=== PATIENT | female | born 1945 | race African-American/Black ===

== ENCOUNTER → 2016-09-04 | Outpatient (CLI) | payer MEDICARE, MEDICAID | END | disposition home or self-care (01) | LOC: MRI 09:47 | PROVIDERS: ATTEND Neurological Surgery | DX: M54.2 Cervicalgia (principal) | CPT/HCPCS: 72141; 72146; 97166; 97530; 97535 ==

== ENCOUNTER → 2016-09-16 | Outpatient (CLI) | payer MEDICARE, MEDICAID ==
[~2016-09-16] MED LIST: GADOBENATE DIMEGLUMINE 529 MG/ML 10ML IV ONE
== END | disposition home or self-care (01) ==
LOC: MRI 09:57
PROVIDERS: ATTEND Neurological Surgery
DX: M54.6 Pain in thoracic spine (principal)
CPT/HCPCS: 72147; A9577

== ENCOUNTER 2016-10-05 22:00 | Inpatient (IN) | payer MEDICARE, MEDICAID ==
[~2016-10-05] VITALS: Ht 152.4 cm; Wt 126.1 kg
[2016-10-05 22:00] VITALS: BP 180/86
[~2016-10-05 22:00] MED LIST changes: +AMLO10TA80 PO; +CARB1TAB2 PO; +ESCI20TA PO; +GABA-529 PO; -GADOBENATE DIMEGLUMINE 529 MG/ML 10ML IV ONE; +HYDR12.54 PO; +LEVO100T9 PO; +LISI-604 PO; +LUBI24CA5 PO; +OMEP20CA10 PO; +SIMV10TA6 PO
[2016-10-06] MEDS ORDERED: DIPHENHYDRAMINE 50MG/ML VIAL IV PRN (00:15)
[2016-10-06] MEDS ORDERED: ONDANSETRON HCL 4MG/2ML VIAL IV PRN (00:15)
[2016-10-06] MEDS ORDERED: IPRATROPIUM/ALBUTEROL 0.5-3(2.5)MG/3ML NEB HHN PRN (00:15)
[2016-10-06 02:26] VITALS: BP 109/42
[2016-10-06] MEDS: OMEPRAZOLE 20MG CAPSULE EXTENDED RELEASE PO SCH (06:16)
[2016-10-06] MEDS: LEVOTHYROXINE SODIUM 100MCG TABLET PO SCH (06:16)
[2016-10-06] MEDS: ACETAMINOPHEN 325MG TABLET PO PRN ×2 (06:17→14:20)
[2016-10-06 07:15] LABS: BASOPHILS % 0.4 % (0.0-2.0); EOSINOPHILS % 1.5 % (0.0-5.0); HEMOGLOBIN. 12.1 g/dL (12.0-16.0); LYMPHOCYTES % 24.1 % (20.0-50.0); MEAN CORPUSCULAR HEMOGLOBIN 30.1 pg (28.0-32.0); MEAN CORPUSCULAR VOLUME 89.7 fL (81.0-99.0); MEAN PLATELET VOLUME 7.1 fl (7.4-10.4); MONOCYTES % 11.1 % (2.0-8.0); NEUTROPHILS % 62.9 % (40.0-76.0); PLATELET 165 x1000/uL (130-400); RED BLOOD CELL COUNT 4.01 mill/uL (4.2-5.4); RED CELL DISTRIBUTION WIDTH 13.5 % (11.6-14.6)
[2016-10-06 07:34] LABS: CARBON DIOXIDE 32 mEq/L (21-32); CHLORIDE 96 mEq/L (98-107)
[2016-10-06 08:00] VITALS: BP 100/61
[2016-10-06] MEDS: GABAPENTIN 100MG CAPSULE PO SCH ×2 (08:24→17:00)
[2016-10-06] MEDS: CITALOPRAM HYDROBROMIDE 20MG TABLET PO SCH (08:24)
[2016-10-06] MEDS: HYDROCHLOROTHIAZIDE 12.5MG CAPSULE PO SCH (08:25)
[2016-10-06] MEDS: CARBIDOPA/LEVODOPA 25/100MG TABLET PO SCH ×2 (08:25→21:36)
[2016-10-06] MEDS: ENOXAPARIN 40MG/0.4ML SYR SUBCUT SCH ×2 (08:26→21:36)
[2016-10-06] MEDS: LISINOPRIL 20MG TABLET PO SCH (08:26)
[2016-10-06] MEDS: AMLODIPINE 10MG TABLET PO SCH (08:26)
[2016-10-06] MEDS: AMITIZA (LUBIPROSTONE) 24MCG PO SCH ×2 (08:27→17:00)
[2016-10-06 20:00] VITALS: BP 105/61
[2016-10-06] MEDS: ATORVASTATIN CALCIUM 10MG TABLET PO SCH (21:37)
[2016-10-07] MEDS: OMEPRAZOLE 20MG CAPSULE EXTENDED RELEASE PO SCH (06:17)
[2016-10-07] MEDS: LEVOTHYROXINE SODIUM 100MCG TABLET PO SCH (06:17)
[2016-10-07] MEDS: ENOXAPARIN 40MG/0.4ML SYR SUBCUT SCH ×2 (07:38→21:37)
[2016-10-07 08:00] VITALS: BP 105/60
[2016-10-07] MEDS: LISINOPRIL 20MG TABLET PO SCH (09:00)
[2016-10-07] MEDS: AMLODIPINE 10MG TABLET PO SCH (09:00)
[2016-10-07] MEDS: HYDROCHLOROTHIAZIDE 12.5MG CAPSULE PO SCH (09:00)
[2016-10-07] MEDS: GABAPENTIN 100MG CAPSULE PO SCH ×2 (09:16→17:15)
[2016-10-07] MEDS: CITALOPRAM HYDROBROMIDE 20MG TABLET PO SCH (09:16)
[2016-10-07] MEDS: CARBIDOPA/LEVODOPA 25/100MG TABLET PO SCH ×2 (09:16→21:34)
[2016-10-07] MEDS: AMITIZA (LUBIPROSTONE) 24MCG PO SCH ×2 (09:17→17:16)
[2016-10-07 20:00] VITALS: BP 113/62
[2016-10-07] MEDS: ATORVASTATIN CALCIUM 10MG TABLET PO SCH (21:34)
[2016-10-08] MEDS: OMEPRAZOLE 20MG CAPSULE EXTENDED RELEASE PO SCH (06:23)
[2016-10-08] MEDS: LEVOTHYROXINE SODIUM 100MCG TABLET PO SCH (06:23)
[2016-10-08] MEDS: ACETAMINOPHEN 325MG TABLET PO PRN ×2 (06:27→21:29)
[2016-10-08 08:30] VITALS: BP 110/66
[2016-10-08] MEDS: HYDROCHLOROTHIAZIDE 12.5MG CAPSULE PO SCH (09:00)
[2016-10-08] MEDS: ENOXAPARIN 40MG/0.4ML SYR SUBCUT SCH ×2 (09:00→21:27)
[2016-10-08] MEDS: AMLODIPINE 10MG TABLET PO SCH (09:00)
[2016-10-08] MEDS: LISINOPRIL 20MG TABLET PO SCH (09:00)
[2016-10-08] MEDS: CITALOPRAM HYDROBROMIDE 20MG TABLET PO SCH (09:15)
[2016-10-08] MEDS: CARBIDOPA/LEVODOPA 25/100MG TABLET PO SCH ×2 (09:15→21:26)
[2016-10-08] MEDS: GABAPENTIN 100MG CAPSULE PO SCH (09:16)
[2016-10-08] MEDS: AMITIZA (LUBIPROSTONE) 24MCG PO SCH ×2 (09:16→17:02)
[2016-10-08 20:00] VITALS: BP 124/77
[2016-10-08] MEDS: ATORVASTATIN CALCIUM 10MG TABLET PO SCH (21:26)
[2016-10-09 05:51] LABS: BASOPHILS % 0.6 % (0.0-2.0); EOSINOPHILS % 1.5 % (0.0-5.0); HEMATOCRIT. 34.4 % (36.0-48.0); HEMOGLOBIN. 11.4 g/dL (12.0-16.0); LYMPHOCYTES % 31.8 % (20.0-50.0); MEAN CORPUSCULAR HEMOGLOBIN 30.1 pg (28.0-32.0); MEAN CORPUSCULAR VOLUME 90.7 fL (81.0-99.0); MEAN PLATELET VOLUME 6.7 fl (7.4-10.4); MONOCYTES % 11.4 % (2.0-8.0); NEUTROPHILS % 54.7 % (40.0-76.0); PLATELET 180 x1000/uL (130-400); RED BLOOD CELL COUNT 3.79 mill/uL (4.2-5.4); RED CELL DISTRIBUTION WIDTH 13.8 % (11.6-14.6)
[2016-10-09 06:10] LABS: CARBON DIOXIDE 29 mEq/L (21-32); CHLORIDE 101 mEq/L (98-107)
[2016-10-09] MEDS: LEVOTHYROXINE SODIUM 100MCG TABLET PO SCH (06:19)
[2016-10-09 07:24] VITALS: BP 123/64
[2016-10-09] MEDS: AMITIZA (LUBIPROSTONE) 24MCG PO SCH ×2 (08:37→17:05)
[2016-10-09] MEDS: AMLODIPINE 10MG TABLET PO SCH (08:38)
[2016-10-09] MEDS: LISINOPRIL 20MG TABLET PO SCH (08:38)
[2016-10-09] MEDS: ENOXAPARIN 40MG/0.4ML SYR SUBCUT SCH ×2 (08:39→21:44)
[2016-10-09] MEDS: CITALOPRAM HYDROBROMIDE 20MG TABLET PO SCH (08:40)
[2016-10-09] MEDS: HYDROCHLOROTHIAZIDE 12.5MG CAPSULE PO SCH (08:40)
[2016-10-09] MEDS: CARBIDOPA/LEVODOPA 25/100MG TABLET PO SCH ×2 (08:40→21:43)
[2016-10-09] MEDS: FAMOTIDINE 20MG TABLET PO SCH (08:40)
[2016-10-09] MEDS: ACETAMINOPHEN 325MG TABLET PO PRN (11:52)
[2016-10-09 20:00] VITALS: BP 110/66
[2016-10-09] MEDS: ATORVASTATIN CALCIUM 10MG TABLET PO SCH (21:43)
[2016-10-10] MEDS: LEVOTHYROXINE SODIUM 100MCG TABLET PO SCH (06:01)
[2016-10-10 08:00] VITALS: BP 143/76
[2016-10-10] MEDS: AMITIZA (LUBIPROSTONE) 24MCG PO SCH ×2 (08:18→17:15)
[2016-10-10] MEDS: CITALOPRAM HYDROBROMIDE 20MG TABLET PO SCH (08:19)
[2016-10-10] MEDS: FAMOTIDINE 20MG TABLET PO SCH (08:20)
[2016-10-10] MEDS: HYDROCHLOROTHIAZIDE 12.5MG CAPSULE PO SCH (08:20)
[2016-10-10] MEDS: CARBIDOPA/LEVODOPA 25/100MG TABLET PO SCH ×2 (08:20→21:09)
[2016-10-10] MEDS: AMLODIPINE 10MG TABLET PO SCH (08:21)
[2016-10-10] MEDS: LISINOPRIL 20MG TABLET PO SCH (08:22)
[2016-10-10] MEDS: ENOXAPARIN 40MG/0.4ML SYR SUBCUT SCH ×2 (08:24→21:10)
[2016-10-10] MEDS ORDERED: POTASSIUM CHLORIDE 20MEQ TABLET SR PO NR (16:15)
[2016-10-10 20:00] VITALS: BP 104/54
[2016-10-10] MEDS: ATORVASTATIN CALCIUM 10MG TABLET PO SCH (21:09)
[2016-10-11] MEDS: LEVOTHYROXINE SODIUM 100MCG TABLET PO SCH (06:10)
[2016-10-11 07:43] LABS: CHLORIDE 102 mEq/L (98-107)
[2016-10-11 08:00] VITALS: BP 102/58
[2016-10-11 08:00] LABS: CARBON DIOXIDE 27 mEq/L (21-32)
[2016-10-11] MEDS: LISINOPRIL 20MG TABLET PO SCH (08:36)
[2016-10-11] MEDS: CITALOPRAM HYDROBROMIDE 20MG TABLET PO SCH (08:36)
[2016-10-11] MEDS: AMLODIPINE 10MG TABLET PO SCH (08:36)
[2016-10-11] MEDS: ENOXAPARIN 40MG/0.4ML SYR SUBCUT SCH ×2 (08:36→21:12)
[2016-10-11] MEDS: CARBIDOPA/LEVODOPA 25/100MG TABLET PO SCH ×2 (08:36→21:12)
[2016-10-11] MEDS: FAMOTIDINE 20MG TABLET PO SCH (08:36)
[2016-10-11] MEDS: AMITIZA (LUBIPROSTONE) 24MCG PO SCH ×2 (08:37→17:20)
[2016-10-11] MEDS: HYDROCHLOROTHIAZIDE 12.5MG CAPSULE PO SCH (08:38)
[2016-10-11 20:00] VITALS: BP 112/66
[2016-10-11] MEDS: ATORVASTATIN CALCIUM 10MG TABLET PO SCH (21:12)
[2016-10-12] MEDS: LEVOTHYROXINE SODIUM 100MCG TABLET PO SCH (06:26)
[2016-10-12] MEDS: ACETAMINOPHEN 325MG TABLET PO PRN (06:26)
[2016-10-12 07:05] VITALS: BP 95/53
[2016-10-12] MEDS: ENOXAPARIN 40MG/0.4ML SYR SUBCUT SCH ×2 (09:00→21:00)
[2016-10-12] MEDS: LISINOPRIL 20MG TABLET PO SCH (09:00)
[2016-10-12] MEDS: HYDROCHLOROTHIAZIDE 12.5MG CAPSULE PO SCH (09:00)
[2016-10-12] MEDS: AMLODIPINE 10MG TABLET PO SCH (09:00)
[2016-10-12] MEDS: FAMOTIDINE 20MG TABLET PO SCH (09:32)
[2016-10-12] MEDS: CITALOPRAM HYDROBROMIDE 20MG TABLET PO SCH (09:32)
[2016-10-12] MEDS: CARBIDOPA/LEVODOPA 25/100MG TABLET PO SCH ×2 (09:32→21:14)
[2016-10-12] MEDS: AMITIZA (LUBIPROSTONE) 24MCG PO SCH ×2 (09:32→17:17)
[2016-10-12 19:00] VITALS: BP 113/65
[2016-10-12] MEDS: ATORVASTATIN CALCIUM 10MG TABLET PO SCH (21:14)
[2016-10-13] MEDS: LEVOTHYROXINE SODIUM 100MCG TABLET PO SCH (06:11)
[2016-10-13 08:00] VITALS: BP 145/86
[2016-10-13] MEDS: FAMOTIDINE 20MG TABLET PO SCH (08:19)
[2016-10-13] MEDS: CITALOPRAM HYDROBROMIDE 20MG TABLET PO SCH (08:20)
[2016-10-13] MEDS: CARBIDOPA/LEVODOPA 25/100MG TABLET PO SCH ×2 (08:20→21:23)
[2016-10-13] MEDS: HYDROCHLOROTHIAZIDE 12.5MG CAPSULE PO SCH (08:20)
[2016-10-13] MEDS: LISINOPRIL 20MG TABLET PO SCH (08:21)
[2016-10-13] MEDS: AMLODIPINE 10MG TABLET PO SCH (08:21)
[2016-10-13] MEDS: AMITIZA (LUBIPROSTONE) 24MCG PO SCH ×2 (08:21→16:35)
[2016-10-13] MEDS: ENOXAPARIN 40MG/0.4ML SYR SUBCUT SCH ×2 (08:22→21:00)
[2016-10-13 20:00] VITALS: BP 95/40
[2016-10-13] MEDS: ATORVASTATIN CALCIUM 10MG TABLET PO SCH (21:23)
[2016-10-14] MEDS: LEVOTHYROXINE SODIUM 100MCG TABLET PO SCH (06:20)
[2016-10-14 08:00] VITALS: BP 114/61
[2016-10-14] MEDS: AMLODIPINE 10MG TABLET PO SCH (09:00)
[2016-10-14] MEDS: ENOXAPARIN 40MG/0.4ML SYR SUBCUT SCH ×2 (09:00→22:15)
[2016-10-14] MEDS: LISINOPRIL 20MG TABLET PO SCH (09:00)
[2016-10-14] MEDS: CITALOPRAM HYDROBROMIDE 20MG TABLET PO SCH (09:41)
[2016-10-14] MEDS: FAMOTIDINE 20MG TABLET PO SCH (09:41)
[2016-10-14] MEDS: HYDROCHLOROTHIAZIDE 12.5MG CAPSULE PO SCH (09:42)
[2016-10-14] MEDS: AMITIZA (LUBIPROSTONE) 24MCG PO SCH ×2 (09:42→18:08)
[2016-10-14] MEDS: CARBIDOPA/LEVODOPA 25/100MG TABLET PO SCH ×2 (09:42→22:15)
[2016-10-14 20:00] VITALS: BP 123/47
[2016-10-14] MEDS: ATORVASTATIN CALCIUM 10MG TABLET PO SCH (22:14)
[2016-10-15] MEDS: LEVOTHYROXINE SODIUM 100MCG TABLET PO SCH (05:55)
[2016-10-15 08:00] VITALS: BP 138/81
[2016-10-15] MEDS: AMITIZA (LUBIPROSTONE) 24MCG PO SCH ×2 (09:25→17:09)
[2016-10-15] MEDS: CARBIDOPA/LEVODOPA 25/100MG TABLET PO SCH ×2 (09:25→21:11)
[2016-10-15] MEDS: FAMOTIDINE 20MG TABLET PO SCH (09:26)
[2016-10-15] MEDS: CITALOPRAM HYDROBROMIDE 20MG TABLET PO SCH (09:26)
[2016-10-15] MEDS: LISINOPRIL 20MG TABLET PO SCH (09:26)
[2016-10-15] MEDS: ENOXAPARIN 40MG/0.4ML SYR SUBCUT SCH ×2 (09:27→21:10)
[2016-10-15] MEDS: HYDROCHLOROTHIAZIDE 12.5MG CAPSULE PO SCH (09:27)
[2016-10-15] MEDS: AMLODIPINE 10MG TABLET PO SCH (09:27)
[2016-10-15 20:00] VITALS: BP 99/54
[2016-10-15] MEDS: ATORVASTATIN CALCIUM 10MG TABLET PO SCH (21:11)
[2016-10-16] MEDS: LEVOTHYROXINE SODIUM 100MCG TABLET PO SCH (06:40)
[2016-10-16] MEDS: ENOXAPARIN 40MG/0.4ML SYR SUBCUT SCH (08:07)
[2016-10-16] MEDS: CARBIDOPA/LEVODOPA 25/100MG TABLET PO SCH (08:08)
[2016-10-16] MEDS: FAMOTIDINE 20MG TABLET PO SCH (08:08)
[2016-10-16] MEDS: AMITIZA (LUBIPROSTONE) 24MCG PO SCH (08:09)
[2016-10-16] MEDS: LISINOPRIL 20MG TABLET PO SCH (08:12)
[2016-10-16] MEDS: HYDROCHLOROTHIAZIDE 12.5MG CAPSULE PO SCH (08:12)
[2016-10-16] MEDS: AMLODIPINE 10MG TABLET PO SCH (08:12)
[2016-10-16 08:26] VITALS: BP 92/53
[2016-10-16] MEDS ORDERED: CITALOPRAM HYDROBROMIDE 40MG TABLET PO SCH (09:00)
[2016-10-16 12:39] VITALS: BP 101/57
== END 2016-10-16 14:50 | disposition home or self-care (01) | DRG 92 ==
PROVIDERS: ADMIT Psychiatry & Neurology Neurology; ATTEND Internal Medicine
DX: G95.89 Other specified diseases of spinal cord (principal); Z68.43 Body mass index [BMI] 50.0-59.9, adult; F33.1 Major depressive disorder, recurrent, moderate; G20 Parkinson's disease; I10 Essential (primary) hypertension; E03.9 Hypothyroidism, unspecified; G95.0 Syringomyelia and syringobulbia; I25.10 Atherosclerotic heart disease of native coronary artery without angina pectoris; I87.2 Venous insufficiency (chronic) (peripheral); M79.7 Fibromyalgia; K59.00 Constipation, unspecified; G43.909 Migraine, unspecified, not intractable, without status migrainosus; F41.9 Anxiety disorder, unspecified; E66.01 Morbid (severe) obesity due to excess calories; R26.89 Other abnormalities of gait and mobility; G44.209 Tension-type headache, unspecified, not intractable; G47.30 Sleep apnea, unspecified; Z90.710 Acquired absence of both cervix and uterus; Z90.49 Acquired absence of other specified parts of digestive tract; Z79.899 Other long term (current) drug therapy
CPT/HCPCS: 36415; 80048; 80053; 85025; 92523; 93970; 97110; 97112; 97116; 97162; 97167; 97530; 97532; 97535; J1650

== ENCOUNTER 2020-12-20 21:59 | Inpatient (IN) | payer MEDICARE, MEDICAID ==
[~2020-12-20] VITALS: Ht 170.2 cm; Wt 112.2 kg
[~2020-12-20 21:59] MED LIST changes: -LISI-604 PO; +LISI20TA31 PO; -OMEP20CA10 PO; +OMEP20CA14 PO; -SIMV10TA6 PO; +SIMV10TA97 PO
[2020-12-20 23:32] LABS: BASOPHILS % 0.5 % (0.0-2.0); CHLORIDE 110 mEq/L (98-107); EOSINOPHILS % 0.3 % (0.0-5.0); HEMATOCRIT. 36.3 % (36.0-48.0); HEMOGLOBIN. 12.1 g/dL (12.0-16.0); LYMPHOCYTES % 13.9 % (20.0-50.0); MEAN CORPUSCULAR VOLUME 92.7 fL (81.0-99.0); MEAN PLATELET VOLUME 7.1 fl (7.4-10.4); MONOCYTES % 8.9 % (2.0-8.0); NEUTROPHILS % 76.4 % (40.0-76.0); PLATELET 145 x1000/uL (130-400); RED BLOOD CELL COUNT 3.91 mill/uL (4.2-5.4); RED CELL DISTRIBUTION WIDTH 13.9 % (11.6-14.6)
[2020-12-21 01:09] LABS: CLARITY URINE CLEAR (CLEAR); COLOR URINE YELLOW (YELLOW); KETONES URINE TRACE (NEGATIVE); LEUKOCYTE ESTERASE URINE NEGATIVE (NEGATIVE); NITRITE URINE NEGATIVE (NEGATIVE); OCCULT BLOOD URINE NEGATIVE (NEGATIVE); PROTEIN URINE NEGATIVE (NEGATIVE)
[2020-12-21] MEDS ORDERED: ACETAMINOPHEN 325MG TABLET PO PRN (09:15)
[2020-12-21] MEDS ORDERED: ONDANSETRON HCL 4MG/2ML INJ IV PRN (09:15)
[2020-12-21] MEDS ORDERED: NALOXONE HCL 1 MG/ML 2ML VIAL IV ONE (13:45)
[2020-12-21 16:00] VITALS: BP 138/75
[2020-12-21] MEDS ORDERED: TOPUD MT (16:38)
[2020-12-21] MEDS ORDERED: FURO-152 MT (16:42)
[2020-12-21] MEDS ORDERED: CYM20 MT (16:42)
[2020-12-21] MEDS ORDERED: SINCR21 MT (16:42)
[2020-12-21 16:44] VITALS: BP 138/75
[2020-12-21] MEDS ORDERED: INFLUENZA VACCINE 05/PF 0.5 ML SYRINGE IM ONE (17:30)
[2020-12-21 20:00] VITALS: BP 108/60
[2020-12-22] VITALS (7 sets, daily range): BP systolic 115–160; BP diastolic 61–76
[2020-12-22 05:55] LABS: BASOPHILS % 0.4 % (0.0-2.0); EOSINOPHILS % 0.9 % (0.0-5.0); HEMATOCRIT. 38.9 % (36.0-48.0); HEMOGLOBIN. 12.9 g/dL (12.0-16.0); LYMPHOCYTES % 26.9 % (20.0-50.0); MEAN CORPUSCULAR HEMOGLOBIN 30.9 pg (28.0-32.0); MEAN CORPUSCULAR VOLUME 93.2 fL (81.0-99.0); MEAN PLATELET VOLUME 7.4 fl (7.4-10.4); MONOCYTES % 8.4 % (2.0-8.0); NEUTROPHILS % 63.4 % (40.0-76.0); PLATELET 151 x1000/uL (130-400); RED BLOOD CELL COUNT 4.18 mill/uL (4.2-5.4); RED CELL DISTRIBUTION WIDTH 13.5 % (11.6-14.6)
[2020-12-22 06:11] LABS: CHLORIDE 108 mEq/L (98-107)
[2020-12-22 06:27] LABS: CREATINE KINASE MB FRACTION < 1.0 ng/mL (0.5-3.6)
[2020-12-22 06:29] LABS: LDL CHOLESTEROL 97 mg/dL (5-100)
[2020-12-22 06:30] LABS: CREATINE KINASE 100 IU/L (26-192); HDL CHOLESTEROL 71 mg/dL (40-59)
[2020-12-22] MEDS ORDERED: IOHEXOL-350 100 ML BOTTLE ONE (19:59)
[2020-12-23] VITALS: BP 134/68
[2020-12-23 04:00] VITALS: BP 144/70
[2020-12-23 08:00] VITALS: BP 118/69
[2020-12-23 08:22] LABS: VITAMIN B12 SERUM 281 pg/mL (211-911)
[2020-12-23 12:00] VITALS: BP 109/56
[2020-12-23 15:29] VITALS: BP 146/71
[2020-12-23 16:00] VITALS: BP 149/71
[2020-12-30] MEDS ORDERED: PIPE3.3736 IV (05:30)
[2020-12-31] MEDS ORDERED: LEVO500T89 MT (15:41)
== END 2020-12-23 18:21 | disposition home or self-care (01) | DRG 74 ==
LOC: ER 21:59 → MICUSO 12-21 01:09 → 7EST 12-21 13:07 → UNDODISIN 12-22 13:40
PROVIDERS: ADMIT Internal Medicine; ATTEND Internal Medicine
DX: G90.8 Other disorders of autonomic nervous system (principal); E44.1 Mild protein-calorie malnutrition; G20 Parkinson's disease; D72.819 Decreased white blood cell count, unspecified; E03.9 Hypothyroidism, unspecified; E87.8 Other disorders of electrolyte and fluid balance, not elsewhere classified; F32.A Depression, unspecified; I95.9 Hypotension, unspecified; E66.01 Morbid (severe) obesity due to excess calories; F41.9 Anxiety disorder, unspecified; I27.20 Pulmonary hypertension, unspecified; I11.9 Hypertensive heart disease without heart failure; M54.9 Dorsalgia, unspecified; R79.89 Other specified abnormal findings of blood chemistry; G62.9 Polyneuropathy, unspecified; G89.29 Other chronic pain; E78.00 Pure hypercholesterolemia, unspecified; Z79.899 Other long term (current) drug therapy; Z68.38 Body mass index [BMI] 38.0-38.9, adult
CPT/HCPCS: 36415; 71045; 71275; 80053; 80061; 81003; 82550; 82553; 82607; 83735; 83880; 84443; 84484; 85025; 85379; 90686; 93005; 93306; 93970; 97162; 99285; J2310; Q9967

== ENCOUNTER 2022-03-26 18:55 | Emergency (ER) | payer MEDICARE, MEDICAID ==
[~2022-03-26] VITALS: Ht 167.6 cm; Wt 91.0 kg
[~2022-03-26 18:55] MED LIST changes: -CARB1TAB2 PO; +CYM20 MT; +FURO-152 MT; +LEVO-65 MT; +SINCR21 MT; +TOPUD MT
[2022-03-26] MEDS ORDERED: SODIUM CHLORIDE 0.9% 1000ML BAG (SEPSIS BOLUS) IV ONE (19:45)
[2022-03-26 20:00] VITALS: BP 132/59
[2022-03-26 20:35] LABS: BASOPHILS % 0.2 % (0.0-2.0); EOSINOPHILS % 0.4 % (0.0-5.0); HEMATOCRIT. 35.6 % (36.0-48.0); HEMOGLOBIN. 11.5 g/dL (12.0-16.0); LYMPHOCYTES % 16.3 % (20.0-50.0); MEAN CORPUSCULAR HEMOGLOBIN 30.7 pg (28.0-32.0); MONOCYTES % 7.9 % (2.0-8.0); NEUTROPHILS % 75.2 % (40.0-76.0); PLATELET 117 x1000/uL (130-400); RED BLOOD CELL COUNT 3.75 mill/uL (4.2-5.4); RED CELL DISTRIBUTION WIDTH 14.3 % (11.6-14.6)
[2022-03-26 20:41] LABS: CHLORIDE 110 mEq/L (98-107)
[2022-03-26 20:43] LABS: PROTHROMBIN TIME 11.2 sec (9.6-11.0)
[2022-03-26 22:07] LABS: CLARITY URINE CLOUDY (CLEAR); COLOR URINE DARK YELLOW (YELLOW); KETONES URINE TRACE (NEGATIVE); LEUKOCYTE ESTERASE URINE TRACE (NEGATIVE); NITRITE URINE NEGATIVE (NEGATIVE); OCCULT BLOOD URINE NEGATIVE (NEGATIVE); PROTEIN URINE 1+ (NEGATIVE); SPECIFIC GRAVITY URINE 1.023 (1.005-1.030)
== END 2022-03-26 22:44 | disposition home or self-care (01) ==
LOC: ER 18:55
DX: E86.0 Dehydration (principal); R53.1 Weakness; I95.9 Hypotension, unspecified; I10 Essential (primary) hypertension; E03.9 Hypothyroidism, unspecified; G20 Parkinson's disease
CPT/HCPCS: 36415; 70450; 71045; 80053; 81003; 83605; 84145; 84443; 84484; 85025; 85610; 87040; 87086; 93005; 96360; 99285; J7030

== ENCOUNTER 2022-09-07 09:07 | Emergency (ER) | payer MEDICARE, MEDICAID ==
[~2022-09-07] VITALS: Ht 165.1 cm; Wt 81.0 kg
[2022-09-07 09:15] VITALS: BP 136/65; PULSE 74; RESP 20; TEMP 98.4; O2SAT 97
[2022-09-07 09:41] LABS: BASOPHILS % 0.7 % (0.0-2.0); EOSINOPHILS % 0.5 % (0.0-5.0); HEMATOCRIT. 38.4 % (36.0-48.0); HEMOGLOBIN. 12.5 g/dL (12.0-16.0); LYMPHOCYTES % 39.5 % (20.0-50.0); MEAN CORPUSCULAR HEMOGLOBIN 30.2 pg (28.0-32.0); MEAN CORPUSCULAR VOLUME 92.9 fL (81.0-99.0); MONOCYTES % 9.2 % (2.0-8.0); NEUTROPHILS % 50.1 % (40.0-76.0); PLATELET 160 x1000/uL (130-400); RED BLOOD CELL COUNT 4.13 mill/uL (4.2-5.4); RED CELL DISTRIBUTION WIDTH 14.7 % (11.6-14.6)
[2022-09-07 09:50] LABS: CHLORIDE 109 mEq/L (98-107)
== END 2022-09-07 11:55 | disposition home or self-care (01) ==
LOC: ER 09:09
DX: R60.9 Edema, unspecified (principal); J44.9 Chronic obstructive pulmonary disease, unspecified; I10 Essential (primary) hypertension; E05.90 Thyrotoxicosis, unspecified without thyrotoxic crisis or storm; Z79.899 Other long term (current) drug therapy
CPT/HCPCS: 36415; 80053; 85025; 93970; 99284

== ENCOUNTER 2023-06-18 08:37 | Inpatient (IN) | payer MEDICARE, MEDICAID ==
[~2023-06-18] VITALS: Ht 170.2 cm; Wt 96.2 kg
[~2023-06-18 08:37] MED LIST changes: -AMLO10TA80 PO; -CYM20 MT; -FURO-152 MT; -GABA-529 PO; -HYDR12.54 PO; -LEVO-65 MT; -LISI20TA31 PO; -SINCR21 MT; +SINEMET PO
[2023-06-18 09:30] LABS: BASOPHILS % 0.7 % (0.0-2.0); EOSINOPHILS % 3.6 % (0.0-5.0); HEMATOCRIT. 41.4 % (36.0-48.0); HEMOGLOBIN. 13.2 g/dL (12.0-16.0); LYMPHOCYTES % 32.9 % (20.0-50.0); MEAN CORPUSCULAR HEMOGLOBIN 31.1 pg (28.0-32.0); MEAN CORPUSCULAR HGB CONC 31.9 g/dL (31.0-37.0); MEAN CORPUSCULAR VOLUME 97.4 fL (81.0-99.0); MEAN PLATELET VOLUME 6.6 fl (7.4-10.4); MONOCYTES % 12.9 % (2.0-8.0); NEUTROPHILS % 49.9 % (40.0-76.0); PLATELET 147 x1000/uL (130-400); RED BLOOD CELL COUNT 4.25 mill/uL (4.2-5.4); RED CELL DISTRIBUTION WIDTH 14.8 % (11.6-14.6); WHITE BLOOD COUNT 3.2 x1000/uL (4.5-11.0)
[2023-06-18 09:31] LABS: CARBON DIOXIDE 27 mEq/L (21-32); CHLORIDE 108 mEq/L (98-107); POTASSIUM 4.2 mEq/L (3.5-5.1); SODIUM 139 mEq/L (136-145)
[2023-06-18 09:32] LABS: CALCIUM 9.9 mg/dL (8.7-10.4)
[2023-06-18 09:36] LABS: CREATININE 0.8 mg/dL (0.6-1.0); GLUCOSE 80 mg/dL (70-105)
[2023-06-18 09:37] LABS: UREA NITROGEN BLOOD 10 mg/dL (9-23)
[2023-06-18 09:38] LABS: ALANINE AMINOTRANSFERASE < 7 IU/L (10-49); ASPARTATE AMINOTRANSFERASE 17 IU/L (<34)
[2023-06-18 09:39] LABS: BILIRUBIN DIRECT 0.3 mg/dL (<=3.0); BILIRUBIN TOTAL 0.9 mg/dL (0.1-1.0); PROTEIN TOTAL 7.4 g/dL (6.0-8.3)
[2023-06-18 10:22] LABS: PROTHROMBIN TIME 11.2 sec (9.6-11.0)
[2023-06-18 10:54] LABS: TROPONIN I HIGH SENSITIVITY < 4 ng/L (3.0-34)
[2023-06-18 11:33] LABS: T4 FREE 1.35 ng/dL (0.89-1.76)
[2023-06-18 11:34] LABS: THYROID STIMULATING HORMONE 3.28 uIU/mL (0.55-4.78)
[2023-06-18] MEDS: FUROSEMIDE 40MG/4ML VIAL IVP ONE (11:35)
[2023-06-18] MEDS: IOHEXOL-350 100 ML BOTTLE ONE (14:53)
[2023-06-18 16:00] VITALS: BP 143/71; PULSE 68; RESP 20; TEMP 97.9
[2023-06-18] MEDS ORDERED: ESCI20TA37 MT (17:02)
[2023-06-18] MEDS ORDERED: ERGO1250 (17:02)
[2023-06-18] MEDS ORDERED: CYAN100010 PO (17:02)
[2023-06-18 17:30] VITALS: BP 143/71; PULSE 68; RESP 16; TEMP 97.9
[2023-06-18] MEDS ORDERED: HYDROCODONE/ACETAMINOPHEN 5/325MG TABLET PO PRN (17:30)
[2023-06-18] MEDS ORDERED: NALOXONE HCL 0.4MG/ML VIAL IV PRN (18:00)
[2023-06-18 20:04] VITALS: BP 158/77; PULSE 77
[2023-06-18] MEDS: FUROSEMIDE 40MG/4ML VIAL IVP SCH (20:04)
[2023-06-18] MEDS: ENOXAPARIN 40MG/0.4ML SYR SUBCUT SCH (22:04)
[2023-06-18 22:10] LABS: HEPATITIS B SURFACE ANTIGEN NEGATIVE (Negative)
[2023-06-18 22:31] LABS: HEPATITIS C AB NON REACTIVE (Neg) (Negative)
[2023-06-19] VITALS (10 sets, daily range): BP systolic 97–147; BP diastolic 46–73; PULSE 69–78; RESP 18–20; TEMP 97.2–97.9; O2SAT 93–99
[2023-06-19] MEDS: IPRATROPIUM/ALBUTEROL 0.5-3(2.5)MG/3ML NEB HHN SCH (08:49)
[2023-06-19] MEDS: LEVOTHYROXINE SODIUM 100MCG TABLET PO SCH (08:53)
[2023-06-19] MEDS: CITALOPRAM HYDROBROMIDE 10MG TABLET PO SCH (08:53)
[2023-06-19] MEDS ORDERED: CARBIDOPA/LEVODOPA 25/100MG TABLET PO SCH (09:00)
[2023-06-19] MEDS: CARBIDOPA/LEVODOPA 25/100MG TABLET CR PO SCH (09:02)
[2023-06-19] MEDS ORDERED: PNEUMOCOCCAL 23-VAL P-SAC VAC 0.5 ML IM ONE (15:00)
[2023-06-19] MEDS ORDERED: INFLUENZA VACCINE 05/PF 0.5 ML SYRINGE IM ONE (15:00)
[2023-06-20] VITALS (12 sets, daily range): BP systolic 102–126; BP diastolic 50–83; PULSE 62–93; RESP 16–20; TEMP 97.2–98.1; O2SAT 96–97
[2023-06-20] MEDS: LACTULOSE 20G/30ML UDC PO SCH (22:46)
[2023-06-21] VITALS (10 sets, daily range): BP systolic 90–114; BP diastolic 39–63; PULSE 61–81; RESP 18–22; TEMP 97.5–98.1; O2SAT 95–100
[2023-06-21] MEDS: NA PHOS,M-B/NA PHOS,DI-BA ENEMA 118ML PR NR (17:48)
== END 2023-06-21 19:10 | disposition home or self-care (01) | DRG 291 ==
LOC: ER 08:37 → EDBEDREQ 12:26 → EDBEDREQTM 12:26 → EDBEDREQSVC 12:26 → 5WST 12:51 → 7WST 15:47
PROVIDERS: ADMIT Internal Medicine; ATTEND Internal Medicine
DX: I11.0 Hypertensive heart disease with heart failure (principal); I50.33 Acute on chronic diastolic (congestive) heart failure; J96.01 Acute respiratory failure with hypoxia; F02.80 Dementia in other diseases classified elsewhere, unspecified severity, without behavioral disturbance, psychotic disturbance, mood disturbance, and anxiety; E03.9 Hypothyroidism, unspecified; J44.9 Chronic obstructive pulmonary disease, unspecified; E66.9 Obesity, unspecified; F32.A Depression, unspecified; Z68.33 Body mass index [BMI] 33.0-33.9, adult
CPT/HCPCS: 36415; 71045; 71275; 80048; 80076; 83880; 84439; 84443; 84484; 85025; 85379; 86705; 87340; 93005; 93970; 94640; 99285; A6261; J1650; J1940; Q9967